=== PATIENT | male | born 1965 | race Caucasian/White ===

== ENCOUNTER 2016-09-04 20:47 | Emergency (ER) | payer BC ==
[2016-09-04 20:51] VITALS: BP 154/75; PULSE 70; RESP 18; TEMP 97.9
[2016-09-04] MEDS ORDERED: PROPARACAINE 0.5% OPHTH DROPS 15 ML BTL LEFT EYE STA (20:51)
[2016-09-04] MEDS ORDERED: ERYTHROMYCIN 5 MG/GM OPHTH OINT 3.5 GM TUBE LEFT EYE STA (20:57)
--- NOTE | 2016-09-04 21:01 | ED ---
General Adult HPI - General Chief complaint: Eye Problems Stated complaint: foreign object in left eye Time Seen by Provider: 09/04/16 20:51 Source: patient, RN notes reviewed Mode of arrival: ambulatory Limitations: no limitations - History of Present Illness Initial comments: This is a 51-year-old male presents with foreign body in the left eye. Patient states he was using a chain saw to cut wood when a piece of wood flew into his left eye. Patient states this happened about 2 hours ago. Patient denies any blurring vision but states there is irritation when he blinks. Patient does not wear contact lenses. Patient states he has prescription eyeglasses but he does not have them with him the [facility] today. Patient denies any recent fever, chills, shortness breath, chest pain, abdominal pain, nausea/vomiting/diarrhea, back pain, numbness, tingling, hematuria, headache, or visual changes, or any other complaints. - Related Data Previous Rx's Medication Instructions Recorded Erythromycin Ophth Oint [Romycin 1 applic LEFT EYE QID 5 Days 09/04/16 Ophth Oint] Allergies Allergy/AdvReac Type Severity Reaction Status Date / Time No Known Allergies Allergy Verified 09/04/16 20:49 Review of Systems ROS Statement: Those systems with pertinent positive or pertinent negative responses have been documented in the HPI. ROS Other: All systems not noted in ROS Statement are negative. Past Medical History Past Medical History: No Reported History History of Any Multi-Drug Resistant Organisms: None Reported Past Surgical History: No Surgical Hx Reported Past Psychological History: No Psychological Hx Reported Smoking Status: Current every day smoker Past Alcohol Use History: Occasional Past Drug Use History: None Reported General Exam - General Exam Comments Initial Comments: General: The patient is awake and alert, in no distress, and does not appear acutely ill. Eye: There is a small foreign body to the 4 o'clock position of the left eye. No foreign body noted with eyelid eversion. Pupils are equal, round and reactive to light, extra-ocular movements are intact. No nystagmus. There is normal conjunctiva bilaterally. No signs of icterus. Visual acuity is 20/20 with both eyes. Patient could see 20/40 out of the right eye and 20/25 in the left eye, but patient did not have his prescription lenses. Neck: The neck is supple, there is no tenderness or JVD. Cardiovascular: There is a regular rate and rhythm. No murmur, rub or gallop is appreciated. Respiratory: Lungs are clear to auscultation, respirations are non-labored, breath sounds are equal. No wheezes, stridor, rales, or rhonchi. Musculoskeletal: Normal ROM, no tenderness. Strength 5/5. Sensation intact. Radial pulses equal bilaterally 2+. Neurological: A&O x 3. CN II-XII intact, There are no obvious motor or sensory deficits. Coordination appears grossly intact. Speech is normal. Skin: Skin is warm and dry and no rashes or lesions are noted. Psychiatric: Cooperative, appropriate mood & affect, normal judgment. Limitations: no limitations Course Vital Signs 09/04/16 20:49 Temperature 97.9 F Pulse Rate 70 Respiratory 18 Rate Blood Pressure 154/75 O2 Sat by Pulse 98 Oximetry Medical Decision Making - Medical Decision Making This is a 51-year-old male presented with a foreign body in the left eye. On physical exam there is a small foreign body to the 4 o'clock position of the left eye. No foreign body noted with eyelid eversion. Pupils are equal, round and reactive to light, extra-ocular movements are intact. No nystagmus. There is normal conjunctiva bilaterally. No signs of icterus. Visual acuity is 20/ 20 with both eyes. Patient could see 20/40 out of the right eye and 20/25 in the left eye, but patient did not have his prescription lenses. Proparacaine was used to anesthetize the eye and fluorescein stain was applied. Patient felt relief of symptoms after proparacaine drops. Left eye viewed under a [place] lamp. Foreign body removal attempt was made using a Q-tip and this was successful. There was uptake in the area where the foreign body was removed indicating corneal abrasion. No hyphema, hypopyon or subconjunctival hemorrhage. Patient tolerated the procedure well. Patient was given antibiotic eye ointment in the [facility] today. I discussed continued use of antibiotic eye ointment for the next 5 days. I discussed that if the patient's symptoms are not 100% improved in 48 hours then he needs to follow-up with ophthalmology. I discussed Tylenol and Motrin for pain. I discussed return parameters. Discussed that patient should follow up with PCP in one to 2 days or return to the [facility] for any worsening symptoms or for any further concerns. Patient was receptive to this plan and patient will be discharged home. Disposition Clinical Impression: Foreign body in eyeball, left Disposition: HOME SELF-CARE Condition: Good Instructions: Eye Foreign Body (ED) Additional Instructions: Please use ophthalmic antibiotic ointment as prescribed. If symptoms are not 100% improved in the next 48 hours please follow-up with ophthalmology. Please use Tylenol and or Motrin as needed for any pain. Please use medication as discussed. Please follow-up with family doctor in the next 2 days of symptoms have not improved. Please return to emergency room if the symptoms increase or worsen or for any other concerns. Prescriptions: Erythromycin Ophth Oint [Romycin Ophth Oint] 1 applic LEFT EYE QID 5 Days Referrals: Orlando Boggs MD [Primary Care Provider] - 1-2 days Cesar Hess MD [STAFF PHYSICIAN] - 1-2 days Time of Disposition: 21:22
== END 2016-09-04 21:30 | disposition home or self-care (01) ==
LOC: EC 20:47
DX: T15.82XA Foreign body in other and multiple parts of external eye, left eye, initial encounter (principal); F17.200 Nicotine dependence, unspecified, uncomplicated
CPT/HCPCS: 65205; 99283

== ENCOUNTER → 2019-11-05 | Outpatient (CLI) | payer OTHER ==
--- NOTE | 2019-11-05 11:17 | MR ---
EXAMINATION TYPE: MR lumbar spine wo con DATE OF EXAM: 11/05/2019 11:03 AM COMPARISON: NONE HISTORY: LBP, RLE radic x 4 years, no trauma/surgery Multiplanar, MultiSpin echo imaging of the lumbar spine was performed. L1-L2: Mild disc desiccation and posterior disc bulge. No herniation or protrusion. No canal stenosis is present. Foramina are patent bilaterally. L2-L3: Normal disc appearance without desiccation. No herniation, protrusion or disc bulging. No ca nal stenosis is present. Foramina are patent bilaterally. L3-L4: Normal disc appearance without desiccation. No herniation, protrusion or disc bulging. No ca nal stenosis is present. Foramina are patent bilaterally. L4-L5: Mild disc desiccation with posterior disc bulge. Mild bilateral lateral recess stenosis. Facet joint arthropathy with bilateral foraminal encroachment. No central stenosis or disc herniation. L5-S1: Normal disc appearance without desiccation. No herniation, protrusion or disc bulging. No ca nal stenosis is present. Foramina are patent bilaterally. Lumbar segments are intact. No paraspinal masses are identified. Conus medullaris has a normal appe arance. IMPRESSION: 1. Degenerative disc disease as discussed. 2. Mild bilateral lateral recess stenosis and foraminal encroachment at L4-5.
== END | disposition home or self-care (01) ==
LOC: RADMRIMAIN 10:23
PROVIDERS: ATTEND Physician Assistant
DX: M51.36 Other intervertebral disc degeneration, lumbar region (principal); M48.061 Spinal stenosis, lumbar region without neurogenic claudication
CPT/HCPCS: 72148

== ENCOUNTER → 2021-01-03 | Outpatient (CLI) | payer OTHER | END | disposition home or self-care (01) ==

== ENCOUNTER 2021-05-28 09:01 | Day surgery (SDC) | payer OTHER ==
[2021-05-26 08:47] VITALS: BMI 30.4
--- NOTE | 2021-05-27 20:23 | HP ---
HISTORY AND PHYSICAL DATE OF SURGERY: 05/28/2021 Carlos Trevino is a 56-year-old patient seen with progressive right knee pain. Options for treatment were discussed. He elected to proceed with right knee arthroscopy. Consent was obtained. PAST MEDICAL HISTORY: Hyperlipidemia. PAST SURGICAL HISTORY: Cataract surgery. DAILY MEDICATIONS: Ibuprofen, simvastatin. ALLERGIES: NONE. SOCIAL HISTORY: He smokes cigarettes. PHYSICAL EVALUATION OF RIGHT KNEE: Range of motion is negative 2/3 to 130 degrees. Tenderness, medial joint line. Positive medial Angie's. Ligaments are stable. Hip rotation is without pain. His distal neurovascular exam is intact. Right knee radiographs reveal osteoarthritic changes. MRI right knee revealed medial meniscal tear. IMPRESSION: 1. Internal derangement of right knee with medial meniscal tear. 2. Hyperlipidemia. PLAN: Right knee arthroscopy with partial meniscectomy and debridement. MMODL / IJN: [id number] /
[~2021-05-28 09:01] MED LIST: HYDROmorphone 0.5 MG/0.5 ML SYRINGE IVP PRN; LIDOCAINE 1% (10MG/ML) FOR IV START INTRADERMA PRN; ONDANSETRON 4 MG/2 ML VIAL IVP ONE
[2021-05-28] MEDS: LACTATED RINGERS 1,000 ML IV SCH ×2 (09:42→12:22)
[2021-05-28] MEDS ORDERED: LIDOCAINE 1% INJ 10MG/ML (20 ML MDV) ONE (10:16)
[2021-05-28] MEDS ORDERED: PROPOFOL 10 MG/ML 20 ML VIAL IV ONE (10:16)
[2021-05-28] MEDS ORDERED: MIDAZOLAM 2 MG/2 ML VIAL ONE (10:16)
[2021-05-28] MEDS ORDERED: .fentaNYL (PF) 50 MCG/ML AMP ONE (10:16)
[2021-05-28] MEDS ORDERED: HYDROmorphone (PF) 1 MG/ML ONE (10:16)
[2021-05-28] MEDS ORDERED: BUPIVACAINE (PF) 0.25% 30 ML VIAL SQ ONE ×2 (10:22→10:50)
[2021-05-28 11:09] VITALS: TEMP 97.6
--- NOTE | 2021-05-28 11:11 | P.OP ---
Date of Procedure: 05/28/21 Preoperative Diagnosis: Internal derangement right knee Postoperative Diagnosis: 1. Bucket-handle tear medial meniscus right knee 2. 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 Reactive synovitis medial, lateral and suprapatellar compartments right knee Procedure(s) Performed: 1. Arthroscopic partial medial meniscectomy right knee 2. Arthroscopic chondroplasty lateral femoral condyle right knee 3. Arthroscopic partial synovectomy medial, lateral and suprapatellar compartments right knee Anesthesia: AMANDAA, local Surgeon: David Funes Estimated Blood Loss (ml): 8 Pathology: none sent Condition: stable Disposition: PACU Indications for Procedure: 56-year-old patient seen with progressive right knee pain. After treatment options were discussed, he elected to proceed with arthroscopy. Operative Findings: see description of procedure Description of Procedure: Patient was taken to the operative suite. Patient underwent a general anesthetic by the department of anesthesia. Patient was given preoperative antibiotics. The right lower extremity was placed in a well-padded arthroscopic leg jack. The right leg was prepped and draped in the normal sterile orthopedic fashion. A lateral parapatellar and suprapatellar incision was made. Trochars were inserted. Arthroscopy was initiated. Suprapatellar pouch revealed diffuse thick reactive synovitis. The patellofemoral joint appeared to articulate congruently. There was grade 1/2 chondromalacia of the patella. The scope was guided into the medial gutter. No loose bodies or plica were identified. The scope was then guided into the medial compartment. A medial parapatellar incision was made. Trocar inserted followed by probe. There was a bucket-handle tear involving the medial meniscus. There were grade 1/2 chondromalacia changes of the medial femoral condyle as well as reactive synovitis anteriorly. I performed a partial medial meniscectomy getting down to stable meniscal tissue. I performed a partial synovectomy. The residual meniscus was stable. There was good decompression of the synovitis. Scope and probe were then guided into the intercondylar notch. Cruciates were identified, probed and found to be stable. The scope and probe were then guided into lateral compartment. Lateral meniscus was probed and found to be stable. There were grade 2 chondromalacia changes of the lateral femoral condyle with some osteochondral tears present. There was thick reactive synovitis anteriorly. I performed a chondroplasty of the lateral femoral condyle as well as a partial synovectomy decompressing the thick reactive synovitis. The shaver was removed. The residual osteochondral surface was stable. There was good decompression of the synovitis. The scope was in guided back into the suprapatellar compartment. I introduced a motorized shaver into the suprapatellar compartment. I debrided some piecemeal fragments of meniscus I encountered. I performed a partial synovectomy. Shaver was removed. There was good decompression of the synovitis. I took one more look on the entire knee, no residual debris. Instruments were now removed from the joint. The joint was infiltrated with .25% Marcaine. Steri-Strips were applied to the portal sites. Sterile dressings were applied. The patient was placed into a AZALIA hose. No tourniquet was utilized. The patient was awakened, transferred to a bed and taken to recovery stable satisfactory condition.
[2021-05-28] MEDS ORDERED: ONDANSETRON 4 MG/2 ML VIAL ONE (11:56)
[2021-05-28 12:47] VITALS: RESP 20
[2021-05-28] MEDS ORDERED: HYDROcodone/APAP 7.5-325MG 1 EACH TAB ONE (12:53)
[2021-05-28] MEDS ORDERED: HYDROcodone/APAP 7.5-325MG 1 EACH TAB PO ONE (12:57)
[2021-05-28 13:36] VITALS: BP 103/52; PULSE 60
== END 2021-05-28 13:47 | disposition home or self-care (01) ==
LOC: OR 09:01
PROVIDERS: ATTEND Orthopaedic Surgery
DX: M23.91 Unspecified internal derangement of right knee (principal); S83.211A Bucket-handle tear of medial meniscus, current injury, right knee, initial encounter; M22.41 Chondromalacia patellae, right knee; M65.861 Other synovitis and tenosynovitis, right lower leg; E78.5 Hyperlipidemia, unspecified; F17.210 Nicotine dependence, cigarettes, uncomplicated
CPT/HCPCS: 29881; 27437; J2250; J0690; J2405; J2001; J3010; J1170; J2704

== ENCOUNTER → 2023-05-30 | Outpatient (CLI) | payer OTHER ==
[2023-05-30 15:58] LABS: Anion Gap 9.3 mmol/L (4.00-12.00); Carbon Dioxide 26.7 mmol/L (21.6-31.8); Potassium 4.9 mmol/L (3.5-5.5)
[2023-05-30 16:24] LABS: Basophils # (A) 0.04 X 10*3/uL (0.00-0.10); Basophils % (A) 0.7 %; Eosinophils % (A) 1.8 %; HCT 43.8 % (39.6-50.0); HGB 13.9 g/dL (13.0-17.0); Lymphocytes # (A) 2.42 X 10*3/uL (0.90-5.00); Lymphocytes % (A) 44.6 %; MCH 27.9 pg (27.0-32.0); MCHC 31.7 g/dL (32.0-37.0); MCV 87.8 FL (80.0-97.0); Mean Platelet Volume 9.9 FL (9.5-12.2); Monocytes # (A) 0.39 X 10*3/uL (0.20-1.00); Monocytes % (A) 7.2 %; NRBC Per 100 WBC 0 X 10*3/uL (0.00-0.01); Neutrophils # (A) 2.44 X 10*3/uL (1.80-7.70); Platelet Count 237 X 10*3/uL (140-440); RBC 4.99 X 10*6/uL (4.40-5.60); RDW 17.3 % (11.5-14.5); WBC 5.43 X 10*3/uL (4.50-10.00)
== END | disposition home or self-care (01) ==
LOC: LABWHC1 09:42
PROVIDERS: ATTEND Orthopaedic Surgery
DX: Z01.818 Encounter for other preprocedural examination (principal); M75.42 Impingement syndrome of left shoulder
CPT/HCPCS: 36415; 80051; 85025; 93005

== ENCOUNTER 2023-06-23 05:44 | Day surgery (SDC) | payer OTHER ==
[2023-06-16 12:12] VITALS: BMI 27.8
--- NOTE | 2023-06-22 22:16 | HP ---
HISTORY AND PHYSICAL DATE OF SURGERY: 06/23/2023. HISTORY OF PRESENT ILLNESS: Carlos Trevino is a 58-year-old patient seen with progressive left shoulder pain. After treatment options were discussed, he elected to proceed with left shoulder arthroscopy. Consent was obtained. PAST MEDICAL HISTORY: Hyperlipidemia. PAST SURGICAL HISTORY: Cataract surgery. DAILY MEDICATIONS: 1. Ibuprofen. 2. Atorvastatin. ALLERGIES: None. SOCIAL HISTORY: Smokes cigarettes. PHYSICAL EVALUATION OF THE LEFT SHOULDER: Flexion 100 degrees. Abduction is 90 degrees, external rotation is 40 degrees with pain and weakness. Tenderness along the anterolateral acromion, rotator cuff, and acromioclavicular joint. Impingement is positive at 80. Cross-body adduction sign is positive. Drop-arm sign is positive. Distal neurovascular exam is intact. IMAGING STUDIES: Left shoulder radiographs revealed a type 2 acromion, acromioclavicular joint osteoarthritis. MRI of left shoulder, partial rotator cuff tear, acromioclavicular joint osteoarthritis, labral tear, and subluxation of the long head biceps tendon. IMPRESSION: 1. Left shoulder impingement with rotator cuff tear. 2. Left shoulder acromioclavicular joint osteoarthritis. 3. Left shoulder bicipital tendinitis with subluxation. 4. Left shoulder labral tear. PLAN: Left shoulder arthroscopy with subacromial decompression, arthroscopic rotator cuff repair, Dee procedure, biceps tenodesis, and debridement of labral tear. MMODL / IJN: [id number] /
[2023-06-23] MEDS ORDERED: LACTATED RINGERS 1,000 ML IV SCH (06:07)
[2023-06-23] MEDS ORDERED: DEXAMETHASONE SOD PHOSPHATE 4 MG/ML 1 ML VIAL IV ONE (06:07)
[2023-06-23] MEDS ORDERED: LIDOCAINE 1% (10MG/ML) FOR IV START INTRADERMA PRN (06:07)
[2023-06-23] MEDS ORDERED: ONDANSETRON 4 MG/2 ML VIAL IVP ONE (06:07)
[2023-06-23] MEDS ORDERED: MIDAZOLAM 2 MG/2 ML VIAL IVP ONE (06:51)
[2023-06-23] MEDS ORDERED: MIDAZOLAM 2 MG/2 ML VIAL IV PRN (07:00)
[2023-06-23] MEDS ORDERED: HYDROmorphone 0.5 MG/0.5 ML SYRINGE IVP PRN (07:00)
[2023-06-23] MEDS ORDERED: DEXAMETHASONE SOD PHOSPHATE 4 MG/ML 1 ML VIAL ONE (07:28)
[2023-06-23] MEDS ORDERED: MIDAZOLAM 2 MG/2 ML VIAL ONE (07:28)
[2023-06-23] MEDS ORDERED: PROPOFOL 10 MG/ML 20 ML VIAL IV ONE (07:28)
[2023-06-23] MEDS ORDERED: ROCURONIUM 10 MG/ML (5 ML VIAL) IV ONE (07:28)
[2023-06-23] MEDS ORDERED: SUCCINYLCHOLINE CHLORIDE 200 MG/10 ML VIAL IV ONE (07:28)
[2023-06-23] MEDS ORDERED: LIDOCAINE 1% INJ 10MG/ML (20 ML MDV) ONE (07:28)
[2023-06-23] MEDS ORDERED: fentaNYL (PF) 50 MCG/ML 2 ML AMP ONE (07:28)
[2023-06-23] MEDS ORDERED: ROPIVACAINE 5 MG/ML 30 ML VIAL ONE (07:28)
--- NOTE | 2023-06-23 09:21 | P.OP ---
Date of Procedure: 06/23/23 Preoperative Diagnosis: Left shoulder impingement Postoperative Diagnosis: 1. Left shoulder rotator cuff tear 2. Left shoulder partial biceps tendon tear/bicipital tendinitis 3. Left shoulder impingement 4. Left shoulder acromioclavicular joint osteoarthritis Procedure(s) Performed: 1. Left shoulder arthroscopic rotator cuff repair 2. Left shoulder arthroscopic biceps tenodesis 3. Left shoulder arthroscopic subacromial decompression 4. Left shoulder arthroscopic Dee procedure Implants: 5Arthrex 4.75 swivel lock anchors Anesthesia: GETA, regional (Interscalene block) Surgeon: David Funes Production Line Solderer #1: Saran Hurd Estimated Blood Loss (ml): 11 Pathology: none sent Condition: stable Disposition: PACU Indications for Procedure: 58-year-old gentleman seen with progressive left shoulder pain. After having treatment options discussed, he elected to proceed with arthroscopy. Operative Findings: See description of procedure Description of Procedure: Patient underwent an interscalene block by department of anesthesia. The patient was then taken to the operative suite. The patient underwent a general anesthetic by the department of anesthesia. The patient was placed into a lateral position and secured. There was appropriate padding of the bony prominence. Left shoulder was then prepped and draped in normal sterile orthopedic fashion. We placed the extremity in 10 pounds of longitudinal traction. A posterior incision was now made for a posterior working portal site. The trocar and cannula were inserted into the glenohumeral joint. Arthroscopy was initiated. Spinal needle was now inserted anteriorly, to ascertain the anterior working portal site. An incision was now made in that area, a trocar was inserted followed by a probe. There was some partial tearing hyperemia long head biceps tendon consistent with bicipital tendinitis. The labrum was stable. There were mild grade 1 chondromalacia changes of the anterior aspect of the glenoid fossa. There was a rotator cuff tear present. I decided to proceed with an arthroscopic biceps tenodesis. I introduced a cannula through the anterior portal site. I now passed a loop and tack stitch through the biceps tendon. I released the biceps tendon from the superior labrum. With the assistance of León barger at the interval for insertion of an anchor. The suture limb was passed through the eyelet of a Arthrex 4.75 swivel lock anchor. I placed the eyelet the pre-punch hole and held in that position while León ZAYAS tensioned the suture and deployed the anchor with good fixation noted. The residual suture limb was now clipped. We had a stable appearing biceps tenodesis. Instruments were now removed from the glenohumeral joint. Utilizing the posterior working portal site, the trocar and cannula were inserted into the subacromial space. Arthroscopy initiated. I made an incision 2 fingerbreadths lateral to the acromion. I introduced my trocar followed by my ArthroCare ablator. I now began ablating thick subacromial bursal tissue, which exposed the undersurface of the anterior acromion. There was diminished subacromial space. There was a very prominent anterior acromion. A motorized bur was introduced and a subacromial decompression was performed. I also excised some osteophytes off the inferior aspect of the distal clavicle. The AC joint was visualized and noted to be fairly arthritic. The motorized bur was introduced in the anterior portal site and a Dee procedure was performed without difficulty, decompressing the AC joint nicely. I turned my attention to the rotator cuff. There was a 2.5 cm rotator cuff tear. I debrided the margins getting down to stable tendon tissue. I introduced my motorized bur and abraded the footprint area, getting some petechial bleeding. I now made an accessory portal site off the lateral aspect of the acromion. I punched 2 holes medial for medial row fixation with the assistance of León ZAYAS carefully tapping the punch with a mallet as I held the punch and the camera. I now introduced both anchors into the pre-punched holes and León ZAYAS tapped them with the mallet as I held anchors and the camera. León ZAYAS now screwed the anchors in place a while I held the anchor guide and camera. All 8 limbs of suture were now passed through good bites of rotator cuff tendon. I now punched 2 holes for lateral row fixation again I held the punch and camera while León ZAYAS used a mallet to tap in the punch. We now passed sutures through both anchors and individually I introduced the anchors into the pre-punch holes I held the anchor guide in position with one hand holding the camera with the other hand while León ZAYAS tensioned the sutures and screwed in the anchors one at a time. All residual suture limbs were now clipped. We had good compression of the tendon along the entire footprint. Instruments now removed from the portal sites. All portal sites were approximated with nylon suture. Sterile dressings were applied followed by a shoulder immobilizer. Saran ZAYAS assisted in this complex case. The patient was awakened, transferred to a bed, and taken to recovery in stable condition.
[2023-06-23 09:24] VITALS: RESP 16; TEMP 97.4
[2023-06-23 10:37] VITALS: BP 132/81; PULSE 63
--- NOTE | 2023-06-24 11:31 | P.ANPRN ---
Procedure Note - Anesthesia - Nerve Block Performed Left Interscalene Single Time Out Performed: Yes Date of Procedure: 06/23/23 Procedure Start Time: 06:50 Procedure Stop Time: 06:53 Location of Patient: PreOp Indication: Acute Post-Operative Pain, Requested by Surgeon Sedation Type: Sedate with meaningful contact maintained Preparation: Sterile Prep Position: Supine Needle Types: Pajunk Needle Gauge: 21 Ultrasound used to visualize needle placement: Yes Ultrasound used to observe medication spread: Yes Blood Aspirated: No Pain Paresthesia on Injection Noted: No Resistance on Injection: Normal Image Stored and Saved: Yes Events: Uneventful and Well Tolerated (Ropivacaine 0.5% 20 mL plus dexamethasone 4 mg)
== END 2023-06-23 10:46 | disposition home or self-care (01) ==
LOC: OR 05:44
PROVIDERS: ATTEND Orthopaedic Surgery
DX: M75.102 Unspecified rotator cuff tear or rupture of left shoulder, not specified as traumatic (principal); M75.42 Impingement syndrome of left shoulder; M75.22 Bicipital tendinitis, left shoulder; M19.012 Primary osteoarthritis, left shoulder; G89.29 Other chronic pain; E78.5 Hyperlipidemia, unspecified; F17.210 Nicotine dependence, cigarettes, uncomplicated; Z79.899 Other long term (current) drug therapy; Z98.890 Other specified postprocedural states
CPT/HCPCS: 64415; 29827; 29828; 29826; C1713 ×3; J2250; J0330; J1100; J0690; J2405; J2001; J3010; J2795; J2704